=== PATIENT | male | born 1950 | race Caucasian/White ===

== ENCOUNTER 2018-08-19 17:32 | Emergency (ER) | payer MEDICARE ==
--- NOTE | 2018-08-19 17:49 | UC ---
Throat Pain/Nasal Jose Ramon HPI - HPI Summary HPI Summary: Ill with cold symptoms for 8 days and today with sinus pressure bilaterally, greenish yellow nasal coryza and fever. - History of Current Complaint Stated Complaint: COLD SX'S Time Seen by Provider: 08/19/18 17:49 Hx Obtained From: Patient Onset/Duration: Gradual Onset Severity: Moderate Cough: Nonproductive Associated Signs & Symptoms: Positive: Sinus Discomfort, Nasal Discharge, Fever - Epiglottits Risk Factors Epiglottis Risk Factors: Negative - Allergies/Home Medications Allergies/Adverse Reactions: Allergies Allergy/AdvReac Type Severity Reaction Status Date / Time bee venom protein (honey bee) Allergy Hives Verified 08/19/18 18:04 meperidine [From Demerol] Allergy Hives Verified 08/19/18 18:04 Penicillins Allergy Hives Verified 08/19/18 18:04 Home Medications: Home Medications Dicyclomine CAP* [Bentyl CAP*] 10 mg PO BID 08/19/18 [History Confirmed 08/19/18 ] Lisinopril TAB* [Prinivil TAB*] 10 mg PO DAILY 08/19/18 [History Confirmed 08/19] PMH/Surg Hx/FS Hx/Imm Hx Previously Healthy: Yes Cardiovascular History: Hypertension, Other - Hyperlipidemia - Surgical History Surgical History: Yes Surgery Procedure, Year, and Place: left lower leg ORIF. Neck surgery. Right wrist. deviated septum - Family History Known Family History: Positive: Non-Contributory Family History: denies cardio-vascular issues in family lineage - Social History Alcohol Use: None Substance Use Type: None Smoking Status (MU): Former Smoker Review of Systems All Other Systems Reviewed And Are Negative: Yes Constitutional: Positive: Fever ENT: Positive: Sore Throat, Nasal Discharge, Sinus Congestion, Sinus Pain/ Tenderness Respiratory: Positive: Cough - NonProductive cough Is Patient Immunocompromised?: No Physical Exam Triage Information Reviewed: Yes Appearance: Well-Appearing, No Pain Distress, Well-Nourished Vital Signs Reviewed: Yes Eye Exam: Normal ENT: Positive: Pharynx normal, Nasal congestion, Nasal drainage - Greenish yellow nasal coryza, TMs normal, Sinus tenderness - Bilateral maxillary sinus tenderness., Uvula midline. Negative: Trismus, Muffled voice Neck: Positive: Supple, Nontender, No Lymphadenopathy Respiratory: Positive: Lungs clear, Normal breath sounds, No respiratory distress, No accessory muscle use Cardiovascular: Positive: RRR, No Murmur, Pulses Normal, Brisk Capillary Refill Musculoskeletal Exam: Normal Neurological Exam: Normal Psychological Exam: Normal Skin Exam: Normal Throat Pain/Nasal Course/Dx - Course Course Of Treatment: Patient is comfortable here. I believe at this point in time he has a sinusitis which going to treat with doxycycline 100 mg by mouth twice a day 10 days. Definite follow up with his primary care provider if no improvement by Thursday. - Differential Dx/Diagnosis Provider Diagnosis: Sinusitis Discharge - Sign-Out/Discharge Documenting (check all that apply): Patient Departure All imaging exams completed and their final reports reviewed: No Studies - Discharge Plan Condition: Fair Disposition: HOME Prescriptions: DOXYcycline CAP(*) [DOXYcycline 100MG CAP(*)] 100 mg PO BID 7 Days #14 cap Patient Education Materials: Sinusitis (ED) Referrals: Teresa Dupree MD [Primary Care Provider] - Additional Instructions: Increase fluids, take Tylenol every 4 hours and Motrin every 6 or 8 hours for the better. No dairy products, antacids or multivitamins 2 hours before you take the doxycycline and 2 hours after you take doxycycline however be sure and take it with food. Follow-up with your primary care provider on Thursday if no improvement. - Billing Disposition and Condition Condition: FAIR Disposition: Home
[2018-08-19 17:57] VITALS: BP 163/79
[2018-08-20 12:21] LABS: Hepatitis C Antibody Nonreactive (Nonreactive)
== END 2018-08-19 18:38 | disposition home or self-care (01) ==
LOC: UCCORT 17:32
DX: J32.9 Chronic sinusitis, unspecified (principal); I10 Essential (primary) hypertension; Z87.891 Personal history of nicotine dependence; Z79.899 Other long term (current) drug therapy; Z91.030 Bee allergy status; Z88.0 Allergy status to penicillin; Z88.5 Allergy status to narcotic agent
CPT/HCPCS: 36415; 86803; 99212; G0463